=== PATIENT | female | born 1945 | race Caucasian/White ===

== ENCOUNTER 2020-12-09 13:35 | Outpatient (CLI) | payer MEDICARE | END 2020-12-09 13:36 | disposition home or self-care (01) | LOC: CSHCT 13:35 | PROVIDERS: ATTEND Urology | DX: N20.0 Calculus of kidney (principal) | CPT/HCPCS: 74176 ==

== ENCOUNTER 2021-02-25 11:23 | Outpatient (CLI) | payer MEDICARE ==
[2021-02-25 14:36] LABS: Hemoglobin 11.8 g/dL (12.0-15.5); Mean Corpuscular HGB CONC 32.9 g/dL (32.0-36.0); Mean Corpuscular Hemoglobin 31.1 pg (27.0-33.0); Mean Corpuscular Volume 94.5 fl (81.6-98.3); Platelet Count 346 10x3/uL (150-450); RBC Distribution Width 13.5 % (11.5-14.5); White Blood Cell (WBC) Count 4.6 10x3/uL (3.5-10.5)
[2021-02-25 14:45] LABS: Anion Gap 13 mmol/L (10-20); BUN (Urea Nitrogen) 13 mg/dL (9.8-20.1); Calc. Creatinine Clearance 0 mL/min (70-130); Calcium 9.3 mg/dL (7.8-10.44); Carbon Dioxide 24 mmol/L (23-31); Chloride 108 mmol/L (98-107); Glucose 89 mg/dL (83-110); Potassium 3.9 mmol/L (3.5-5.1); Sodium 141 mmol/L (136-145)
[2021-02-25 23:49] LABS: SARS-CoV-2 PCR by NAA Not Detected (NotDetected)
== END 2021-02-25 11:24 | disposition home or self-care (01) ==
LOC: CSHLAB 11:23
PROVIDERS: ATTEND Podiatrist Foot & Ankle Surgery
DX: Z01.812 Encounter for preprocedural laboratory examination (principal); Z20.822 Contact with and (suspected) exposure to COVID-19
CPT/HCPCS: 80048; 85027; U0003; U0005

== ENCOUNTER → 2021-03-02 | Day surgery (SDC) | payer MEDICARE ==
[2021-03-01 11:14] VITALS: BMI 24.4
[~2021-03-02] MED LIST: Bupivacaine PF 0.5% 30 ML VIAL ONE; Famotidine/PF 20 mg/2ml Vial ONE; Fentanyl 100 MCG/2 ML VIAL ONE; Lidocaine 1% MPF 2 ML VIAL ONE; Lidocaine 2% PF 5 ML VIAL ONE; Neomycin-Polymyxin 1 ML AMP ONE; PROPOFOL 20 ML ONE
== END ==
LOC: CSHSDC 11:42
PROVIDERS: ATTEND Podiatrist Foot & Ankle Surgery
PROC: 0SRN0JZ Replacement of Left Metatarsal-Phalangeal Joint with Synthetic Substitute, Open Approach (ICD-10-PCS; principal; 2021-03-02)
DX: M20.22 Hallux rigidus, left foot (principal); M20.42 Other hammer toe(s) (acquired), left foot; E78.5 Hyperlipidemia, unspecified; I73.9 Peripheral vascular disease, unspecified; Z90.710 Acquired absence of both cervix and uterus
CPT/HCPCS: 28285; 28291; 73660; 76000; C1713 ×2; C1776; J0690; J2001; J2704; J3010; S0020; S0028